=== PATIENT | male | born 1990 | race Caucasian/White ===

== ENCOUNTER 2020-05-26 11:23 | Emergency (ER) | payer OTHER ==
[~2020-05-26] VITALS: Ht 177.8 cm; Wt 77.2 kg
[2020-05-26 11:27] VITALS: BP 137/84
[2020-05-26] MEDS: LIDOCAINE 1% PF 30 ML VIAL. INJ ONE (12:00)
--- NOTE | 2020-05-26 12:09 | PHYS DOC ---
Past History Past Medical History: No Pertinent History Past Surgical History: No Surgical History Alcohol Use: None General Adult EDM: Chief Complaint: LACERATION/AVULSION HPI: HPI: 30-year-old male coming in for laceration to distal fat pad of right second finger. He was cutting bread with a bread knife when the knife slipped. Last tetanus greater than 5 years ago. Review of Systems: Review of Systems: Constitutional: Denies fever or chills Eyes: Denies change in visual acuity HENT: Denies nasal congestion or sore throat Respiratory: Denies cough or shortness of breath Cardiovascular: Denies chest pain or edema GI: Denies abdominal pain, nausea, vomiting, bloody stools or diarrhea : Denies dysuria Musculoskeletal: Denies back pain or joint pain Integument: Denies rash, laceration Neurologic: Denies headache, focal weakness or sensory changes Endocrine: Denies polyuria or polydipsia Lymphatic: Denies swollen glands Psychiatric: Denies depression or anxiety Heart Score: Risk Factors: Risk Factors: DM, Current or recent (<one month) smoker, HTN, HLP, family history of CAD, obesity. Risk Scores: Score 0 - 3: 2.5% MACE over next 6 weeks - Discharge Home Score 4 - 6: 20.3% MACE over next 6 weeks - Admit for Clinical Observation Score 7 - 10: 72.7% MACE over next 6 weeks - Early Invasive Strategies Current Medications: Current Meds: Current Medications Medications (Trade) Dose Ordered Sig/Vj Start Time Stop Time Status Last Admin Dose Admin Lidocaine HCl (Lidocaine 1% Pf) 30 ml 1X ONCE 05/26/20 12:00 05/26/20 12:01 DC Allergies: Allergies: Allergies Coded Allergies Type Severity Reaction Last Updated Verified No Known Drug Allergies 05/26/20 No Physical Exam: PE: Constitutional: Well developed, well nourished, no acute distress, non-toxic appearance. [] HENT: Normocephalic, atraumatic, bilateral external ears normal, oropharynx moist, no oral exudates, nose normal. [] Eyes: PERRLA, EOMI, conjunctiva normal, no discharge. [] Neck: Normal range of motion, no tenderness, supple, no stridor. [] Cardiovascular:Heart rate regular rhythm, no murmur [] Lungs & Thorax: Bilateral breath sounds clear to auscultation [] Abdomen: Bowel sounds normal, soft, no tenderness, no masses, no pulsatile masses. [] Skin: Warm, dry, no erythema, no rash. [] 1.5 cm laceration to distal fat pad of left second finger Back: No tenderness, no CVA tenderness. [] Extremities: No tenderness, no cyanosis, no clubbing, ROM intact, no edema. [] Neurologic: Alert and oriented X 3, normal motor function, normal sensory function, no focal deficits noted. [] Psychologic: Affect normal, judgement normal, mood normal. [] Current Patient Data: Vital Signs: Vital Signs Date Time Temp Pulse Resp B/P (MAP) Pulse Ox O2 Delivery O2 Flow Rate FiO2 05/26/20 11:27 98.3 71 16 137/84 (101) 97 Room Air EKG: EKG: [] Radiology/Procedures: Radiology/Procedures: Present lidocaine use, cleaned with iodine, seven 5-0 sutures placed in simple interrupted pattern [] Course & Med Decision Making: Course & Med Decision Making Pertinent Labs and Imaging studies reviewed. (See chart for details) [] Dragon Disclaimer: Dragon Disclaimer: This electronic medical record was generated, in whole or in part, using a voice recognition dictation system. Departure Departure: Impression: Primary Impression: Laceration of left index finger Disposition: 01 DC HOME SELF CARE/HOMELESS Condition: STABLE Referrals: PCP,ROSY (PCP) Patient Instructions: Laceration Care, Adult Additional Instructions: Return for suture removal in 7 days JIMMY PATE MD May 26, 2020 12:09
[2020-05-26] MEDS: DIPH,PERTUSS(ACELL),TET VAC/PF 0.5 ML SYRINGE. VAX IM ONE (12:21)
== END 2020-05-26 12:26 | disposition home or self-care (01) ==
LOC: ER 11:23
DX: S61.211A Laceration without foreign body of left index finger without damage to nail, initial encounter (principal); W26.0XXA Contact with knife, initial encounter; Y93.89 Activity, other specified; Y92.89 Other specified places as the place of occurrence of the external cause; Y99.8 Other external cause status
CPT/HCPCS: 12001; 90471; 90715; 99283; J2001

== ENCOUNTER 2020-06-02 07:58 | Emergency (ER) | payer OTHER ==
[~2020-06-02] VITALS: Ht 177.8 cm; Wt 77.0 kg
--- NOTE | 2020-06-02 08:05 | PHYS DOC ---
Past History Past Medical History: No Pertinent History Past Surgical History: No Surgical History Alcohol Use: None Adult General HPI HPI Patient is a 30-year-old male presenting for suture removal. Patient has x7 simple interrupted sutures to distal tip of left index finger. Sutures have been in for x1 week. Uncomplicated recovery so far, no fever Review of Systems Review of Systems Fourteen body systems of review of systems have been reviewed. See HPI for pertinent positives and negative responses, other bravo all other systems are negative, non-pertinent or non-contributory Allergies Allergies Allergies Coded Allergies Type Severity Reaction Last Updated Verified No Known Drug Allergies 05/26/20 No Physical Exam Physical Exam Constitutional: Well developed, well nourished, no acute distress, non-toxic appearance. HENT: Normocephalic, atraumatic, bilateral external ears normal, oropharynx moist, no oral exudates, nose normal. Eyes: PERRLA, EOMI, conjunctiva normal, no discharge. Neck: Normal range of motion, no tenderness, supple, no stridor. Cardiovascular: Heart rate regular, sinus rhythm per monitor Lungs & Thorax: Bilateral chest rise without any obvious distress Abdomen: Bowel sounds normal, soft, no tenderness, no masses, no pulsatile masses. Nonsurgical abdomen, no peritoneal signs Skin: Warm, dry, no erythema, no rash. X7 simple interrupted well-appearing sutures on distal tip of left index finger Back: No tenderness, no CVA tenderness. Extremities: No tenderness, no cyanosis, no clubbing, ROM intact, no edema. Neurologic: Alert and oriented X 3, grossly normal motor & sensory function, no focal deficits noted. Psychologic: Affect normal, judgement normal, mood normal. EKG EKG [] Radiology/Procedures Radiology/Procedures [] Heart Score Risk Factors: Risk Factors: DM, Current or recent (<one month) smoker, HTN, HLP, family history of CAD, obesity. Risk Scores: Risk Factors: DM, Current or recent (<one month) smoker, HTN, HLP, family history of CAD, obesity. Course & Med Decision Making Course & Med Decision Making Nontoxic patient presenting for suture removal Uncomplicated removal of x7 simple interrupted sutures to distal tip of left finger Continued supportive care and wound care advised Outpatient PC follow-up for continuity of care recommended. Strict return precautions discussed with good understanding by patient, all questions and concerns addressed prior to ER departure in stable condition Devyn Disclaimer Dragon Disclaimer This electronic medical record was generated, in whole or in part, using a voice recognition dictation system. Departure Departure: Impression: Primary Impression: Visit for suture removal Disposition: 01 DC HOME SELF CARE/HOMELESS Condition: STABLE Referrals: PCP,NO (PCP) Patient Instructions: Suture Removal KELY FERNCH DO Jun 02, 2020 08:05
[2020-06-02 08:10] VITALS: BP 129/82
[2020-06-02] MEDS ORDERED: NEOMY/BACITR/POLYMYXIN OINT PACKET. TP ONE (08:21)
== END 2020-06-02 08:25 | disposition home or self-care (01) ==
LOC: ER 07:58
DX: S61.211D Laceration without foreign body of left index finger without damage to nail, subsequent encounter (principal); X58.XXXD Exposure to other specified factors, subsequent encounter
CPT/HCPCS: 99281